=== PATIENT | female | born 1960 | race Caucasian/White ===

== ENCOUNTER 2017-07-07 05:35 | Day surgery (SDC) | payer OTHER ==
[~2017-07-07] VITALS: Ht 162.6 cm; Wt 128.8 kg
[2017-07-07] VITALS (9 sets, daily range): BP systolic 137–166; BP diastolic 75–93; PULSE 62–77; RESP 12–19; Ht 162.6 cm; Wt 128.8 kg
[2017-07-07] MEDS ORDERED: LACTATED RINGER'S 1,000 ML IV* SCH (06:00)
[2017-07-07] MEDS ORDERED: DILT180C9 PO (06:19)
[2017-07-07] MEDS ORDERED: ALLO100T PO (06:19)
[2017-07-07] MEDS ORDERED: HYDR25TA6 PO (06:19)
[2017-07-07] MEDS ORDERED: ISOS30TA5 PO (06:19)
[2017-07-07] MEDS ORDERED: LOSA100T7 PO (06:19)
[2017-07-07] MEDS ORDERED: METO-429 PO (06:19)
[2017-07-07] MEDS ORDERED: FENO160T13 PO (06:19)
[2017-07-07] MEDS ORDERED: IND50 PO (06:19)
--- NOTE | 2017-07-07 07:27 | HPN ---
Date/Time of Note Date/Time of Note DATE: 07/07/17 TIME: 07:27 Interval H&P Admission Note Pt. seen H&P reviewed: No system changes JOAQUIN BULLOCK MD Jul 07, 2017 07:27
[2017-07-07] MEDS ORDERED: PROPOFOL 20 ML ONE (07:34)
[2017-07-07] MEDS ORDERED: LIDOCAINE 2% (SDV) 5 ML INJ ONE (07:34)
[2017-07-07] MEDS ORDERED: MEPERIDINE 100 MG INJ ONE (07:34)
[2017-07-07] MEDS ORDERED: CEFAZOLIN 1 GM INJ ONE (08:01)
[2017-07-07] MEDS ORDERED: METOCLOPRAMIDE 10 MG INJ ONE (08:34)
[2017-07-07] MEDS ORDERED: ONDANSETRON 4 MG INJ ONE (08:34)
--- NOTE | 2017-07-07 08:51 | SIPON ---
Date/Time of Note Date/Time of Note DATE: 07/07/17 TIME: 08:45 Operative Report Preoperative Diagnosis postmenopausal bleeding uterine leiomyomata Postoperative Diagnosis same as above endometrial polyp endocervial polyp Operation/Procedure Performed hysteroscopy resection of endometrial polyp' D&c endocervical polypectomy Surgeon see signature line certified surgical first assistant vijay from true clear Anesthesia: general Estimated blood loss: minimal Transfusion Required no Specimen endocervical polyp endometrial polyp \ endometrial curetting Grafts/Implants none Complications none JOAQUIN BULLOCK MD Jul 07, 2017 08:51
--- NOTE | 2017-07-07 08:53 | PD.PPDC ---
WORK CHECKER Discharge Instruction Diagnosis Final Diagnosis: postmenopausal bleeding uterine fibroids endocervical polyp , endometrial Condition Patient Condition: Stable Diet Diet: Resume Regular Diet Activity/Restrictions Activity: May Shower Restrictions: No Sexual Activity Nothing in the Vagina No Rhome No Tampons, douche Follow-up Follow-up with Physician: 2, Week/Weeks Return to clinic for FUNERAL DIRECTOR/EMBALMER/OWNER Instructions: Fever greater than 101 Chills Worsening abdominal pain Excessive Vaginal Bleeding More than 2 pads per hour Unable to tolerate diet JOAQUIN BULLOCK MD Jul 07, 2017 08:53
[2017-07-07] MEDS ORDERED: HYDROmorphONE (0.2 MG/ML) 10ML SYG IV PRN ×3 (09:00)
[2017-07-07] MEDS ORDERED: hydrALAzine 20 MG INJ IV PRN (09:00)
[2017-07-07] MEDS ORDERED: OXYCODONE/ACETAMINOPHEN (5/325) TAB PO PRN ×2 (09:00)
[2017-07-07] MEDS ORDERED: FENTAnyl 50 MCG/ML VIAL IV PRN ×3 (09:00)
[2017-07-07] MEDS ORDERED: LABETALOL HCL 20MG INJ IV PRN (09:00)
[2017-07-07] MEDS ORDERED: DIPHENHYDRAMINE 50 MG INJ IV PRN (09:00)
[2017-07-07] MEDS ORDERED: EPHEDrine SULFATE 50 MG/5 ML SYG IV PRN (09:00)
[2017-07-07] MEDS ORDERED: METOCLOPRAMIDE 10 MG INJ IV PRN (09:00)
[2017-07-07] MEDS ORDERED: MIDAZOLAM 1 MG/ML 2 ML INJ IV PRN (09:00)
[2017-07-07] MEDS ORDERED: ONDANSETRON 4 MG INJ IV PRN (09:00)
[2017-07-07] MEDS ORDERED: MEPERIDINE 25 MG INJ IV PRN (09:00)
--- NOTE | 2017-07-07 14:09 | OPR ---
DATE OF OPERATION: 07/07/2017 PREOPERATIVE DIAGNOSES: 1. Postmenopausal bleeding. 2. Uterine fibroids. POSTOPERATIVE DIAGNOSES: 1. Postmenopausal bleeding. 2. Uterine fibroids. 3. Endocervical polyp. 4. Endometrial polyp. PROCEDURES: 1. Hysteroscopy. 2. Endocervical polypectomy and dissection of endometrial polyp. 3. Uterine curettage. ANESTHESIA: General. ANESTHESIOLOGIST: Dr. Jet Gomes SURGEON: Mina Zeng MD ASSOCIATE PROFESSOR OF PSYCHOLOGY: Nehemias Aleman ESTIMATED BLOOD LOSS: Minimal. DESCRIPTION OF PROCEDURE: Under the proper induction of general anesthesia, the patient was placed in the dorsal lithotomy position. Perineal area and vagina wall was prepped and draped in usual ase ptic manner. On inspection, external genitalia revealed no gross abnormality. Bimanual examination was not done due to body habitus. A weighted speculum was introduced. Cervix was identified. The re was a small polyp in the endocervix which was removed with a and cavity was sounded, which was 11 cm in depth. After the proper preparation for the hysteroscopy, the hysteroscope was introdu josias into the endocervix, advanced to the fundus visualized, and there was ostium visualized on the r ight side, but the left ostium was covered with a small polyp. The resectoscope was introduced thro ugh the scope and endometrial polyp was resected, followed by uterine curettage, done thoroughly in all directions, obtaining proper tissue, which was retrieved in the retriever. Procedure was comple joaquín. ESTIMATED BLOOD LOSS: Minimal. All the instruments were removed from the operative field. During the procedure, a few pictures were taken, including the polyp near the left ostium. Fundus free of any abnormal finding. Endometrial tissue did not appear to be prominent. Dictated By: MINA BERNAL/LLOYD Conf#: [id number] DID#: [id number]
== END 2017-07-07 10:22 | disposition home or self-care (01) ==
LOC: SUR 05:35 → SDS 05:35 → SUR 10:22
PROVIDERS: ATTEND Obstetrics & Gynecology
DX: N95.0 Postmenopausal bleeding (principal); D25.9 Leiomyoma of uterus, unspecified; N84.0 Polyp of corpus uteri; N84.1 Polyp of cervix uteri; I25.10 Atherosclerotic heart disease of native coronary artery without angina pectoris; I10 Essential (primary) hypertension; E78.5 Hyperlipidemia, unspecified; E11.9 Type 2 diabetes mellitus without complications
CPT/HCPCS: 58558; 82962; 88305; J0690; J2175; J2405; J2765; Z7512; Z7610